=== PATIENT | female | born 1975 | race American Indian/Alaskan Native ===

== ENCOUNTER 2019-04-06 09:10 | Outpatient (CLI) | payer BC ==
--- NOTE | 2019-04-06 16:20 | Mammography Report ---
DIGITAL SCREENING MAMMOGRAM WITH CAD, 04/06/2019 INDICATION: Routine screening mammography. TECHNIQUE: Digital bilateral 2D mammography was obtained in the craniocaudal and mediolateral obliq ue projections. This examination was interpreted with the benefit of Computer-Aided Detection analysi s. COMPARISON: 03/31/2018 FINDINGS: Breast Density: The breasts are heterogeneously dense, which may obscure small masses. There is no evidence of dominant mass, suspicious calcifications or architectural distortion in eithe r breast. IMPRESSION: No mammographic evidence of malignancy. Follow up recommendation: Routine yearly BI-RADS Category 1: Negative. A "normal" or negative report should not discourage follow up or biopsy of a clinically significant f inding. A written summary of these findings will be mailed to the patient. The patient will be entered into a mammography reporting system which will generate a reminder letter for the patient's next appointmen t at the appropriate interval. The [employer] recommends yearly mammograms starting at age 40 and continuing as l regulo as a woman is in good health. Breast MRI is recommended for women with an approximate 20-25% or greater lifetime risk of breast cancer, including women with a strong family history of breast or ova jacque cancer or who have been treated for Hodgkin's disease. Signer Name: Connor Cha MD Signed: 04/06/2019 4:15 PM Workstation Name: [id number]
== END 2019-04-06 09:11 | disposition home or self-care (01) ==
LOC: SPVWC 09:10
PROVIDERS: ATTEND Internal Medicine
DX: Z12.31 Encounter for screening mammogram for malignant neoplasm of breast (principal)
CPT/HCPCS: 77067

== ENCOUNTER 2019-12-08 10:44 | Outpatient (CLI) | payer BC ==
--- NOTE | 2019-12-08 13:01 | Ultrasound Report ---
BILATERAL DIGITAL DIAGNOSTIC MAMMOGRAM WITH CAD WITH TOMOSYNTHESIS -- 12/08/2019 BILATERAL LIMITED BREAST ULTRASOUND INDICATION: The patient's physician reports general areas of lumpiness in the upper outer quadrants o f the patient's breasts. The patient is unable to identify a focal area of palpable concern. TECHNIQUE: Digital bilateral mammographic imaging was performed. Spot compression views were obtaine d. Limited ultrasound was performed. This examination was interpreted with the benefit of Computer- ded Detection (CAD) analysis. COMPARISON: 06/06/2018, 05/31/2017, 03/24/2017, 03/16/2016 FINDINGS: Breast Density: The breasts are heterogeneously dense, which may obscure small masses. MAMMOGRAPHIC FINDINGS: There is no evidence of dominant mass, suspicious calcifications or architectu ral distortion in either breast. Spot compression views of the upper outer quadrants of both breasts were also obtained, which demonstrates no focal mammographic abnormality in the areas of palpable con cern identified by the patient's physician. ULTRASOUND FINDINGS: Targeted ultrasound evaluation was performed of the area of interest. Right breast: Sonographic evaluation of the upper outer quadrant of the right breast in the general a cj of clinical concern demonstrates several scattered simple cysts which appear to represent inciden garcia findings. The largest cyst measures 7 mm. There is no evidence of suspicious solid mass or shadow ing. Left breast: Sonographic evaluation of the upper outer quadrant of the left breast in the general are a of clinical concern demonstrates a few scattered simple cysts, the largest of which measures 7 mm. There is no evidence of suspicious solid mass or shadowing. IMPRESSION: Follow up recommendation: Clinical exam BI-RADS Category 1: Negative. No focal mammographic or sonographic abnormality to account for the ge neralized areas of palpable concern in the patient's upper outer breast identified by her physician. Therefore, clinical correlation is recommended. A "normal" or negative report should not discourage follow up or biopsy of a clinically significant f inding. A written summary of these findings will be mailed to the patient. The patient will be entered into a mammography reporting system which will generate a reminder letter for the patient's next appointmen t at the appropriate interval. According to the [employer], yearly mammograms are recommended starting at age 40 and continuing as long as a woman is in good health. Breast MRI is recommended for women with an nikunj roximately 20-25% or greater lifetime risk of breast cancer, including women with a strong family his tory of breast or ovarian cancer and women who have been treated for Hodgkin's disease. Signer Name: Jasmin Wilkes MD Signed: 12/08/2019 12:56 PM Workstation Name: [id number]
== END 2019-12-08 10:45 | disposition home or self-care (01) ==
LOC: SPVWC 10:44
PROVIDERS: ATTEND Obstetrics & Gynecology
DX: N60.02 Solitary cyst of left breast (principal); N60.01 Solitary cyst of right breast
CPT/HCPCS: 77066

== ENCOUNTER 2020-12-11 08:28 | Outpatient (CLI) | payer OTHER ==
--- NOTE | 2020-12-11 10:49 | Mammography Report ---
DIGITAL SCREENING MAMMOGRAM WITH CAD, 12/11/2020 CLINICAL INFORMATION / INDICATION: Routine screening mammography. TECHNIQUE: Digital bilateral 2D mammography was obtained in the craniocaudal and mediolateral obliqu e projections. This examination was interpreted with the benefit of Computer-Aided Detection analysis . COMPARISON: 04/06/2019, 03/31/2018 FINDINGS: Breast Density: The breasts are heterogeneously dense, which may obscure small masses. No dominant mass, suspicious calcifications, or architectural distortion in either breast. No interval change. IMPRESSION: No mammographic evidence of malignancy. Follow up recommendation: Routine yearly BI-RADS Category 1: Negative. A "normal" or negative report should not discourage follow up or biopsy of a clinically significant f inding. A written summary of these findings will be mailed to the patient. The patient will be entered into a mammography reporting system which will generate a reminder letter for the patient's next appointmen t at the appropriate interval. The [employer] recommends yearly mammograms starting at age 40 and continuing as l regulo as a woman is in good health. Breast MRI is recommended for women with an approximate 20-25% or greater lifetime risk of breast cancer, including women with a strong family history of breast or ova jacque cancer or who have been treated for Hodgkin's disease. Signer Name: Ursula Coburn MD Signed: 12/11/2020 10:44 AM Workstation Name: [id number]
== END 2020-12-11 08:29 | disposition home or self-care (01) ==
LOC: SPVWC 08:28
PROVIDERS: ATTEND Internal Medicine
DX: Z12.31 Encounter for screening mammogram for malignant neoplasm of breast (principal)
CPT/HCPCS: 77067

== ENCOUNTER 2021-12-12 15:41 | Outpatient (CLI) | payer OTHER ==
--- NOTE | 2021-12-18 08:18 | Mammography Report ---
DIGITAL SCREENING MAMMOGRAM WITH CAD, 12/12/2021 CLINICAL INFORMATION / INDICATION: Routine screening mammography. TECHNIQUE: Digital bilateral 2D mammography was obtained in the craniocaudal and mediolateral obliqu e projections. This examination was interpreted with the benefit of Computer-Aided Detection analysis . COMPARISON: 12/11/2020, 12/08/2019 FINDINGS: Breast Density: The breasts are heterogeneously dense, which may obscure small masses. No dominant mass, suspicious calcifications, or architectural distortion in either breast. Prominent, but nonenlarged bilateral axillary nodes are seen with interval increase in number. IMPRESSION: No mammographic evidence of malignancy. Follow up recommendation: Routine yearly screening mammogram. BI-RADS Category 2: BENIGN. A "normal" or negative report should not discourage follow up or biopsy of a clinically significant f inding. A written summary of these findings will be mailed to the patient. The patient will be entered into a mammography reporting system which will generate a reminder letter for the patient's next appointmen t at the appropriate interval. The [employer] recommends yearly mammograms starting at age 40 and continuing as l regulo as a woman is in good health. Breast MRI is recommended for women with an approximate 20-25% or greater lifetime risk of breast cancer, including women with a strong family history of breast or ova jacque cancer or who have been treated for Hodgkin's disease. Signer Name: Heladio Maynard MD Signed: 12/14/2021 4:28 PM Workstation Name: [id number]
== END 2021-12-12 15:42 | disposition home or self-care (01) ==
LOC: SPVWC 15:41
PROVIDERS: ATTEND Internal Medicine
DX: Z12.31 Encounter for screening mammogram for malignant neoplasm of breast (principal)
CPT/HCPCS: 77067